=== PATIENT | male | born 1970 | race African-American/Black ===

== ENCOUNTER 2020-08-13 13:55 | Emergency (ER) | payer SELFPAY ==
[2020-08-13 14:24] VITALS: BP 144/65; PULSE 82; BMI 43.7
== END 2020-08-13 17:05 | disposition home or self-care (01) ==
LOC: JERFT 13:55
PROC: 0HQGXZZ Repair Left Hand Skin, External Approach (ICD-10-PCS; principal; 2020-08-13)
DX: S61.213A Laceration without foreign body of left middle finger without damage to nail, initial encounter (principal)
CPT/HCPCS: 99282-25

== ENCOUNTER 2021-10-07 11:56 | Inpatient (IN) | payer OTHER ==
[2021-10-07] MEDS ORDERED: ACETAMINOPHEN 500 MG TABLET (FP) PO ONE (13:22)
[2021-10-07] MEDS ORDERED: ACETAMINOPHEN 325 MG TABLET (FP) ONE ×2 (13:50→23:17)
[2021-10-07 15:05] LABS: BASO % 0.5 % (0-2.0); EOS % 1.3 % (0-4.5); HEMATOCRIT 41.7 % (35.4-49); HEMOGLOBIN 13.9 GM/dL (11.7-16.9); LYMPH % 22.8 % (8-40); MCH 29.8 pg (25.7-33.7); MCHC 33.3 g/dl (32.0-35.9); MEAN CELL VOLUME 89.7 fl (80-96); MEAN PLT VOLUME 8.2 fl (7.5-11.1); MONO % 6.9 % (3.8-10.2); NEUT % 68.5 % (42.8-82.8); PLATELET COUNT 227 10^3/uL (134-434); RBC 4.65 M/mm3 (4.00-5.60); RDW 13.8 % (11.9-15.9); WHITE BLOOD COUNT 8.1 K/mm3 (4.0-10.0)
[2021-10-07 15:32] LABS: BLOOD UREA NITROGEN 15.8 mg/dL (7-18)
[2021-10-07 15:35] LABS: CREATININE 1.1 mg/dL (0.55-1.3)
[2021-10-07] MEDS ORDERED: CLINDAMYCIN 600MG PREMIX IVPB 600 MG/50 ML BAG IVPB ONE ×2 (15:36→16:05)
[2021-10-07 15:37] LABS: BILIRUBIN,TOTAL 0.7 mg/dL (0.2-1)
[2021-10-07 15:45] LABS: ERYTHROCYTE SEDIMENTATION RATE 34 mm/hr (0-20)
[2021-10-07] MEDS ORDERED: VANCOMYCIN PREMIX 1.5 GM 1,500 MG/300 ML BAG IVPB SCH (17:30)
[2021-10-07] MEDS: ITRACONAZOLE 100 MG CAPSULE PO SCH (18:55)
[2021-10-07] MEDS: VANCOMYCIN PREMIX 1.5 GM 1,500 MG/300 ML BAG IVPB SCH (18:55)
[2021-10-07 19:05] LABS: EPI CELLS 12 /uL (0-25.1); HYALINE CASTS 1 /uL (0-3.1); PH,URINE 5.5 (5.0-8.0); URINE APPEARANCE CLEAR; URINE BACTERIA 89 /uL (0-1359); URINE BILIRUBIN NEGATIVE (NEGATIVE); URINE COLOR YELLOW; URINE GLUCOSE (UA) NEGATIVE (NEGATIVE); URINE KETONE TRACE (NEGATIVE); URINE LEUK ESTERASE TRACE (NEGATIVE); URINE NITRITE NEGATIVE (NEGATIVE); URINE PROTEIN NEGATIVE (NEGATIVE); URINE RBC 3 /uL (0-23.9); URINE WBC 17 /uL (0-25.8)
[2021-10-07] MEDS: ACETAMINOPHEN 325 MG TABLET (FP) PO PRN (23:20)
[2021-10-08 00:52] VITALS: BMI 45.3
[2021-10-08] MEDS: VANCOMYCIN PREMIX 1.5 GM 1,500 MG/300 ML BAG IVPB SCH (06:37)
[2021-10-08 08:52] LABS: BASO % 0.6 % (0-2.0); EOS % 2.2 % (0-4.5); HEMATOCRIT 42.5 % (35.4-49); HEMOGLOBIN 13.7 GM/dL (11.7-16.9); LYMPH % 27.5 % (8-40); MCH 29.2 pg (25.7-33.7); MCHC 32.2 g/dl (32.0-35.9); MEAN CELL VOLUME 90.6 fl (80-96); MEAN PLT VOLUME 8.4 fl (7.5-11.1); MONO % 7.1 % (3.8-10.2); NEUT % 62.6 % (42.8-82.8); PLATELET COUNT 229 10^3/uL (134-434); RBC 4.69 M/mm3 (4.00-5.60); RDW 13.9 % (11.9-15.9); WHITE BLOOD COUNT 7.6 K/mm3 (4.0-10.0)
[2021-10-08 09:34] LABS: CALCIUM 9.2 mg/dL (8.5-10.1)
[2021-10-08 09:35] LABS: BLOOD UREA NITROGEN 15.6 mg/dL (7-18)
[2021-10-08] MEDS ORDERED: FUROSEMIDE 40 MG TABLET (FP) PO ONE (10:38)
[2021-10-08] MEDS: ITRACONAZOLE 100 MG CAPSULE PO SCH (10:58)
[2021-10-08] MEDS ORDERED: MEROPENEM 1 GM VIAL (RESTRICTED TO ID) IVPB ONE ×2 (13:38→17:15)
[2021-10-08] MEDS ORDERED: DEXTROSE 5%-WATER 100 ML IVPB ONE ×2 (13:38→17:15)
[2021-10-08] MEDS: MEROPENEM 1 GM in DEXTROSE 5%-WATER 100 ML IVPB SCH ×2 (14:00→17:19)
[2021-10-08] MEDS: ACETAMINOPHEN 325 MG TABLET (FP) PO PRN (19:35)
[2021-10-09] MEDS ORDERED: MEROPENEM 1 GM VIAL (RESTRICTED TO ID) IVPB ONE ×2 (02:13→16:53)
[2021-10-09] MEDS ORDERED: DEXTROSE 5%-WATER 100 ML IVPB ONE ×2 (02:14→16:54)
[2021-10-09] MEDS: MEROPENEM 1 GM in DEXTROSE 5%-WATER 100 ML IVPB SCH ×3 (03:02→17:45)
[2021-10-09] MEDS ORDERED: VANCOMYCIN PREMIX 1.5 GM 1,500 MG/300 ML BAG IVPB SCH (06:00)
[2021-10-09 07:55] LABS: BASO % 0.5 % (0-2.0); EOS % 4.4 % (0-4.5); HEMATOCRIT 39.3 % (35.4-49); HEMOGLOBIN 13.3 GM/dL (11.7-16.9); LYMPH % 27.3 % (8-40); MCH 30.2 pg (25.7-33.7); MCHC 33.8 g/dl (32.0-35.9); MEAN CELL VOLUME 89.4 fl (80-96); MONO % 9.1 % (3.8-10.2); NEUT % 58.7 % (42.8-82.8); PLATELET COUNT 203 10^3/uL (134-434); RBC 4.39 M/mm3 (4.00-5.60); RDW 13.7 % (11.9-15.9); WHITE BLOOD COUNT 7.1 K/mm3 (4.0-10.0)
[2021-10-09 08:34] LABS: CALCIUM 8.9 mg/dL (8.5-10.1)
[2021-10-09 08:35] LABS: BLOOD UREA NITROGEN 14.1 mg/dL (7-18)
[2021-10-09] MEDS ORDERED: DEXMEDETOMIDINE HCL 200 MCG/2 ML IVPB ONE (09:45)
[2021-10-09] MEDS ORDERED: amLODIPine BESYLATE 2.5 MG TABLET (FP) PO SCH (10:00)
[2021-10-09] MEDS ORDERED: LIDOCAINE 1%/EPI 1:100000 (20 ML MULTI DOSE VIAL) ONE (10:01)
[2021-10-09] MEDS ORDERED: LIDOCAINE HCL 1%, 10 MG/ML (20ML VIAL) ONE (10:01)
[2021-10-09] MEDS ORDERED: BUPIVACAINE HCL/PF 0.5% (5MG/ML) 10 ML VIAL ONE (10:02)
[2021-10-09] MEDS ORDERED: MIDAZOLAM HCL 2 MG/2 ML SINGLE DOSE VIAL ONE ×2 (10:33→10:53)
[2021-10-09] MEDS ORDERED: KETAMINE HCL 200 MG/20 ML VIAL ONE (10:34)
[2021-10-09] MEDS ORDERED: LIDOCAINE HCL 1%, 10 MG/ML (20ML VIAL) INF ONE (10:49)
[2021-10-09] MEDS ORDERED: BUPIVACAINE HCL/PF 0.5% (5MG/ML) 10 ML VIAL IJ ONE (11:35)
[2021-10-09] MEDS ORDERED: LACTATED RINGERS SOLUTION 1,000 ML IV SCH ×2 (12:00→12:41)
[2021-10-09] MEDS: ITRACONAZOLE 100 MG CAPSULE PO SCH (13:57)
[2021-10-09] MEDS: ACETAMINOPHEN 325 MG TABLET (FP) PO PRN ×2 (17:46→21:53)
[2021-10-09] MEDS: ENOXAPARIN NA (PORCINE) 40 MG/0.4 ML DISP.SYRIN SQ SCH (21:48)
[2021-10-09] MEDS: ATORVASTATIN CA 10 MG TABLET (FP) PO SCH (21:48)
[2021-10-09] MEDS ORDERED: ENOXAPARIN NA (PORCINE) 40 MG/0.4 ML DISP.SYRIN SQ SCH (22:00)
[2021-10-09] MEDS ORDERED: ATORVASTATIN CA 10 MG TABLET (FP) PO SCH (22:00)
[2021-10-10] MEDS ORDERED: MEROPENEM 1 GM VIAL (RESTRICTED TO ID) IVPB ONE ×3 (01:09→16:55)
[2021-10-10] MEDS ORDERED: DEXTROSE 5%-WATER 100 ML IVPB ONE ×3 (01:10→16:55)
[2021-10-10] MEDS: MEROPENEM 1 GM in DEXTROSE 5%-WATER 100 ML IVPB SCH ×3 (01:33→17:36)
[2021-10-10] MEDS: ACETAMINOPHEN 325 MG TABLET (FP) PO PRN ×3 (01:40→09:50)
[2021-10-10] MEDS ORDERED: VANCOMYCIN PREMIX 1.5 GM 1,500 MG/300 ML BAG IVPB SCH (06:00)
[2021-10-10 08:43] LABS: BASO % 0.5 % (0-2.0); EOS % 2.3 % (0-4.5); HEMATOCRIT 39.1 % (35.4-49); HEMOGLOBIN 12.7 GM/dL (11.7-16.9); LYMPH % 24.3 % (8-40); MCH 29.4 pg (25.7-33.7); MCHC 32.5 g/dl (32.0-35.9); MEAN CELL VOLUME 90.3 fl (80-96); MEAN PLT VOLUME 8.7 fl (7.5-11.1); MONO % 8.2 % (3.8-10.2); NEUT % 64.7 % (42.8-82.8); PLATELET COUNT 214 10^3/uL (134-434); RBC 4.33 M/mm3 (4.00-5.60); RDW 13.4 % (11.9-15.9); WHITE BLOOD COUNT 8.6 K/mm3 (4.0-10.0)
[2021-10-10 08:57] LABS: ALBUMIN 3.9 g/dl (3.4-5.0); BLOOD UREA NITROGEN 19.4 mg/dL (7-18); CALCIUM 8.9 mg/dL (8.5-10.1)
[2021-10-10 09:01] LABS: CREATININE 1.2 mg/dL (0.55-1.3)
[2021-10-10 09:02] LABS: BILIRUBIN,TOTAL 0.9 mg/dL (0.2-1); TOT PROT 7.6 g/dl (6.4-8.2)
[2021-10-10] MEDS: ENOXAPARIN NA (PORCINE) 40 MG/0.4 ML DISP.SYRIN SQ SCH ×2 (09:48→22:16)
[2021-10-10] MEDS: amLODIPine BESYLATE 2.5 MG TABLET (FP) PO SCH (09:49)
[2021-10-10] MEDS: ITRACONAZOLE 100 MG CAPSULE PO SCH (09:49)
[2021-10-10] MEDS ORDERED: amLODIPine BESYLATE 2.5 MG TABLET (FP) PO SCH (10:00)
[2021-10-10] MEDS ORDERED: IBUPROFEN 600 MG TABLET (FP) PO PRN (12:38)
[2021-10-10] MEDS ORDERED: oxyCODONE HCL 5 MG TABLET PO PRN (14:58)
[2021-10-10] MEDS: ATORVASTATIN CA 10 MG TABLET (FP) PO SCH (22:16)
[2021-10-11] MEDS ORDERED: MEROPENEM 1 GM VIAL (RESTRICTED TO ID) IVPB ONE ×2 (00:57→08:53)
[2021-10-11] MEDS ORDERED: DEXTROSE 5%-WATER 100 ML IVPB ONE ×2 (00:57→08:54)
[2021-10-11] MEDS: MEROPENEM 1 GM in DEXTROSE 5%-WATER 100 ML IVPB SCH ×2 (01:02→09:37)
[2021-10-11 09:11] LABS: BASO % 0.7 % (0-2.0); EOS % 2.7 % (0-4.5); HEMATOCRIT 39.9 % (35.4-49); HEMOGLOBIN 13.3 GM/dL (11.7-16.9); LYMPH % 25.8 % (8-40); MCH 29.9 pg (25.7-33.7); MCHC 33.3 g/dl (32.0-35.9); MEAN CELL VOLUME 89.7 fl (80-96); MEAN PLT VOLUME 8.8 fl (7.5-11.1); NEUT % 62.8 % (42.8-82.8); PLATELET COUNT 218 10^3/uL (134-434); RBC 4.45 M/mm3 (4.00-5.60); RDW 13.4 % (11.9-15.9); WHITE BLOOD COUNT 6.8 K/mm3 (4.0-10.0)
[2021-10-11 09:27] LABS: CALCIUM 9.2 mg/dL (8.5-10.1)
[2021-10-11] MEDS: ITRACONAZOLE 100 MG CAPSULE PO SCH (09:37)
[2021-10-11] MEDS: ENOXAPARIN NA (PORCINE) 40 MG/0.4 ML DISP.SYRIN SQ SCH ×2 (09:37→21:30)
[2021-10-11] MEDS: amLODIPine BESYLATE 2.5 MG TABLET (FP) PO SCH (09:37)
[2021-10-11] MEDS ORDERED: HYDROCHLOROTHIAZIDE 12.5 MG CAPSULE (FP) PO SCH (10:00)
[2021-10-11] MEDS ORDERED: POLYETHYLENE GLYCOL 3350 119 GM BTL PO SCH (11:30)
[2021-10-11] MEDS ORDERED: POLYETHYLENE GLYCOL (HEALTHYLAX) 3350 17 GM PACKET PO SCH (13:17)
[2021-10-11] MEDS: POLYETHYLENE GLYCOL (HEALTHYLAX) 3350 17 GM PACKET PO SCH (14:34)
[2021-10-11] MEDS ORDERED: DEXTROSE 5%-WATER - 50 ML IVPB ONE (16:50)
[2021-10-11] MEDS ORDERED: cefTRIAXone SODIUM 1 GM VIAL ONE (16:50)
[2021-10-11] MEDS: CEFTRIAXONE 1 GM in DEXTROSE 5%-WATER - 50 ML IVPB SCH (17:00)
[2021-10-11] MEDS: ATORVASTATIN CA 10 MG TABLET (FP) PO SCH (21:31)
[2021-10-12] MEDS ORDERED: amLODIPine BESYLATE 10 MG TABLET (FP) PO SCH (08:22)
[2021-10-12] MEDS ORDERED: HYDROCHLOROTHIAZIDE 25 MG TABLET (FP) PO SCH (08:22)
[2021-10-12] MEDS ORDERED: cefTRIAXone SODIUM 1 GM VIAL ONE (09:36)
[2021-10-12] MEDS ORDERED: DEXTROSE 5%-WATER - 50 ML IVPB ONE (09:36)
[2021-10-12] MEDS: ENOXAPARIN NA (PORCINE) 40 MG/0.4 ML DISP.SYRIN SQ SCH (09:38)
[2021-10-12] MEDS: POLYETHYLENE GLYCOL (HEALTHYLAX) 3350 17 GM PACKET PO SCH (09:38)
[2021-10-12] MEDS: CEFTRIAXONE 1 GM in DEXTROSE 5%-WATER - 50 ML IVPB SCH (09:38)
[2021-10-12] MEDS: ITRACONAZOLE 100 MG CAPSULE PO SCH (09:40)
[2021-10-12] MEDS ORDERED: BISACODYL 10 MG SUPP.RECT PR ONE ×2 (10:00→14:03)
[2021-10-12] MEDS ORDERED: POLYETHYLENE GLYCOL (HEALTHYLAX) 3350 17 GM PACKET PO SCH (10:00)
[2021-10-12 12:19] VITALS: BP 156/95; PULSE 73; TEMP 98.3
== END 2021-10-12 17:21 | disposition home or self-care (01) | DRG 361 ==
LOC: JER 11:56 → UNDOADMOB 15:58 → JERBED 15:58 → INTOOBSV 15:58 → JERBED 16:55 → J7W 10-08 00:32 → OBSVTOIN 10-09 15:32
PROVIDERS: ADMIT Internal Medicine; ATTEND Internal Medicine
PROC: 0HBNXZZ Excision of Left Foot Skin, External Approach (ICD-10-PCS; 2021-10-09)
PROC: 0J9R0ZZ Drainage of Left Foot Subcutaneous Tissue and Fascia, Open Approach (ICD-10-PCS; principal; 2021-10-09 10:00)
DX: L03.116 Cellulitis of left lower limb (principal); L02.612 Cutaneous abscess of left foot; B35.1 Tinea unguium; E66.01 Morbid (severe) obesity due to excess calories; Z68.42 Body mass index [BMI] 45.0-49.9, adult; B95.61 Methicillin susceptible Staphylococcus aureus infection as the cause of diseases classified elsewhere
CPT/HCPCS: 36415; 71045-TC-FY; 73630-TC-LT; 80048; 80053; 80061; 81003; 82962; 83036; 84439; 84443; 85025; 85379; 85651; 87070; 87075; 87077; 87086; 87186; 87205; 88304-TC; 93005; 93010; 93306-TC; 94760; 97116-GP; 97161-GP; 99285-25; C9803; G0378; U0003; U0005

== ENCOUNTER 2021-10-22 13:18 | Inpatient (IN) | payer OTHER ==
[2021-10-22] MEDS ORDERED: VANCOMYCIN/WATER 1,250 MG/250 ML BAG IVPB ONE (14:00)
[2021-10-22] MEDS ORDERED: MEROPENEM 1 GM in DEXTROSE 5%-WATER 100 ML IVPB ONE (14:07)
[2021-10-22] MEDS ORDERED: MEROPENEM 1 GM VIAL (RESTRICTED TO ID) IVPB ONE (14:21)
[2021-10-22 22:19] VITALS: BMI 43.5
[2021-10-22] MEDS ORDERED: ACETAMINOPHEN 325 MG TABLET (FP) PO PRN (23:34)
[2021-10-23] MEDS: amLODIPine BESYLATE 5 MG TABLET (FP) PO SCH (09:39)
[2021-10-23] MEDS: ITRACONAZOLE 100 MG CAPSULE PO SCH (09:39)
[2021-10-23] MEDS: NICOTINE 14 MG/24 HOURS TOPICAL PATCH TD SCH (09:39)
[2021-10-23] MEDS: ENOXAPARIN NA (PORCINE) 40 MG/0.4 ML DISP.SYRIN SQ SCH (09:39)
[2021-10-23] MEDS ORDERED: VANCOMYCIN 1 GM in D5W (PRE-DOCKED) 1,000 MG/250 ML IVPB SCH (10:00)
[2021-10-23 10:50] LABS: HEMATOCRIT 39.6 % (35.4-49); HEMOGLOBIN 13.2 GM/dL (11.7-16.9); MCH 29.3 pg (25.7-33.7); MCHC 33.3 g/dl (32.0-35.9); MEAN CELL VOLUME 88.2 fl (80-96); MEAN PLT VOLUME 8.5 fl (7.5-11.1); PLATELET COUNT 245 10^3/uL (134-434); RBC 4.48 M/mm3 (4.00-5.60); RDW 13.2 % (11.9-15.9); WHITE BLOOD COUNT 7.1 K/mm3 (4.0-10.0)
[2021-10-23 11:06] LABS: CALCIUM 9.6 mg/dL (8.5-10.1)
[2021-10-23 11:07] LABS: ALBUMIN 3.8 g/dl (3.4-5.0); BLOOD UREA NITROGEN 12.2 mg/dL (7-18); MAGNESIUM 2.1 mg/dL (1.8-2.4)
[2021-10-23 11:09] LABS: CREATININE 1.2 mg/dL (0.55-1.3)
[2021-10-23 11:10] LABS: PHOSPHOROUS 3.4 mg/dL (2.5-4.9)
[2021-10-23 11:11] LABS: BILIRUBIN,TOTAL 0.8 mg/dL (0.2-1); TOT PROT 7.5 g/dl (6.4-8.2)
[2021-10-23] MEDS ORDERED: cefTRIAXone SODIUM 1 GM VIAL ONE (14:13)
[2021-10-23] MEDS ORDERED: DEXTROSE 5%-WATER - 50 ML IVPB ONE (14:13)
[2021-10-23] MEDS: CEFTRIAXONE 1 GM in DEXTROSE 5%-WATER - 50 ML IVPB SCH (14:15)
[2021-10-23] MEDS: ATORVASTATIN CA 10 MG TABLET (FP) PO SCH (22:30)
[2021-10-23] MEDS: HYDROCHLOROTHIAZIDE 12.5 MG CAPSULE (FP) PO SCH (22:30)
[2021-10-24 10:02] LABS: BASO % 0.4 % (0-2.0); EOS % 2.6 % (0-4.5); HEMOGLOBIN 12.9 GM/dL (11.7-16.9); LYMPH % 22.2 % (8-40); MCH 29.5 pg (25.7-33.7); MCHC 33.2 g/dl (32.0-35.9); MEAN PLT VOLUME 8.4 fl (7.5-11.1); MONO % 6.4 % (3.8-10.2); NEUT % 68.4 % (42.8-82.8); PLATELET COUNT 250 10^3/uL (134-434); RBC 4.38 M/mm3 (4.00-5.60); RDW 12.9 % (11.9-15.9); WHITE BLOOD COUNT 7.7 K/mm3 (4.0-10.0)
[2021-10-24] MEDS ORDERED: cefTRIAXone SODIUM 1 GM VIAL ONE (10:19)
[2021-10-24] MEDS ORDERED: DEXTROSE 5%-WATER - 50 ML IVPB ONE (10:20)
[2021-10-24] MEDS: NICOTINE 14 MG/24 HOURS TOPICAL PATCH TD SCH (10:28)
[2021-10-24] MEDS: amLODIPine BESYLATE 5 MG TABLET (FP) PO SCH (10:28)
[2021-10-24] MEDS: ITRACONAZOLE 100 MG CAPSULE PO SCH (10:28)
[2021-10-24] MEDS: CEFTRIAXONE 1 GM in DEXTROSE 5%-WATER - 50 ML IVPB SCH (10:28)
[2021-10-24 10:42] LABS: CALCIUM 9.1 mg/dL (8.5-10.1)
[2021-10-24 10:43] LABS: BLOOD UREA NITROGEN 14.1 mg/dL (7-18)
[2021-10-24] MEDS: ENOXAPARIN NA (PORCINE) 40 MG/0.4 ML DISP.SYRIN SQ SCH (10:44)
[2021-10-24 10:47] LABS: CREATININE 1.1 mg/dL (0.55-1.3)
[2021-10-24] MEDS: HYDROCHLOROTHIAZIDE 12.5 MG CAPSULE (FP) PO SCH (21:54)
[2021-10-24] MEDS: ATORVASTATIN CA 10 MG TABLET (FP) PO SCH (21:54)
[2021-10-25 09:27] LABS: BASO % 0.8 % (0-2.0); EOS % 2.8 % (0-4.5); HEMATOCRIT 39.7 % (35.4-49); HEMOGLOBIN 13.8 GM/dL (11.7-16.9); LYMPH % 30.1 % (8-40); MCH 30.2 pg (25.7-33.7); MCHC 34.7 g/dl (32.0-35.9); MEAN PLT VOLUME 8.2 fl (7.5-11.1); MONO % 7.1 % (3.8-10.2); NEUT % 59.2 % (42.8-82.8); PLATELET COUNT 242 10^3/uL (134-434); RBC 4.57 M/mm3 (4.00-5.60); RDW 13.1 % (11.9-15.9); WHITE BLOOD COUNT 7.4 K/mm3 (4.0-10.0)
[2021-10-25 09:44] LABS: CALCIUM 9.7 mg/dL (8.5-10.1)
[2021-10-25 09:45] LABS: BLOOD UREA NITROGEN 13.7 mg/dL (7-18)
[2021-10-25] MEDS ORDERED: DEXTROSE 5%-WATER - 50 ML IVPB ONE (10:35)
[2021-10-25] MEDS ORDERED: cefTRIAXone SODIUM 1 GM VIAL ONE (10:35)
[2021-10-25] MEDS: CEFTRIAXONE 1 GM in DEXTROSE 5%-WATER - 50 ML IVPB SCH (10:45)
[2021-10-25] MEDS: amLODIPine BESYLATE 5 MG TABLET (FP) PO SCH (10:45)
[2021-10-25] MEDS: NICOTINE 14 MG/24 HOURS TOPICAL PATCH TD SCH ×2 (10:45→10:55)
[2021-10-25] MEDS: ITRACONAZOLE 100 MG CAPSULE PO SCH (10:52)
[2021-10-25] MEDS: ENOXAPARIN NA (PORCINE) 40 MG/0.4 ML DISP.SYRIN SQ SCH (11:39)
[2021-10-25] MEDS: HYDROCHLOROTHIAZIDE 12.5 MG CAPSULE (FP) PO SCH (21:27)
[2021-10-25] MEDS: ATORVASTATIN CA 10 MG TABLET (FP) PO SCH (21:28)
[2021-10-26 08:32] LABS: BASO % 0.9 % (0-2.0); EOS % 3.9 % (0-4.5); HEMATOCRIT 40.4 % (35.4-49); HEMOGLOBIN 13.4 GM/dL (11.7-16.9); LYMPH % 27.8 % (8-40); MCH 29.3 pg (25.7-33.7); MCHC 33.1 g/dl (32.0-35.9); MEAN CELL VOLUME 88.5 fl (80-96); MEAN PLT VOLUME 8.4 fl (7.5-11.1); MONO % 7.4 % (3.8-10.2); PLATELET COUNT 234 10^3/uL (134-434); RBC 4.57 M/mm3 (4.00-5.60); RDW 13.2 % (11.9-15.9); WHITE BLOOD COUNT 7.7 K/mm3 (4.0-10.0)
[2021-10-26 08:50] LABS: CALCIUM 9.8 mg/dL (8.5-10.1)
[2021-10-26 08:54] LABS: CREATININE 1.1 mg/dL (0.55-1.3)
[2021-10-26] MEDS ORDERED: DEXTROSE 5%-WATER - 50 ML IVPB ONE (09:16)
[2021-10-26] MEDS ORDERED: cefTRIAXone SODIUM 1 GM VIAL ONE (09:16)
[2021-10-26] MEDS: CEFTRIAXONE 1 GM in DEXTROSE 5%-WATER - 50 ML IVPB SCH (09:18)
[2021-10-26] MEDS: amLODIPine BESYLATE 5 MG TABLET (FP) PO SCH (09:18)
[2021-10-26] MEDS: ENOXAPARIN NA (PORCINE) 40 MG/0.4 ML DISP.SYRIN SQ SCH (09:19)
[2021-10-26] MEDS: ITRACONAZOLE 100 MG CAPSULE PO SCH (09:19)
[2021-10-26] MEDS: NICOTINE 14 MG/24 HOURS TOPICAL PATCH TD SCH (09:23)
[2021-10-26] MEDS: HYDROCHLOROTHIAZIDE 12.5 MG CAPSULE (FP) PO SCH (21:28)
[2021-10-26] MEDS: ATORVASTATIN CA 10 MG TABLET (FP) PO SCH (21:28)
[2021-10-27 10:04] LABS: BASO % 0.7 % (0-2.0); EOS % 3.2 % (0-4.5); HEMATOCRIT 40.5 % (35.4-49); LYMPH % 28.1 % (8-40); MCH 30.3 pg (25.7-33.7); MCHC 34.6 g/dl (32.0-35.9); MEAN CELL VOLUME 87.6 fl (80-96); MEAN PLT VOLUME 8.4 fl (7.5-11.1); MONO % 7.9 % (3.8-10.2); NEUT % 60.1 % (42.8-82.8); PLATELET COUNT 231 10^3/uL (134-434); RBC 4.63 M/mm3 (4.00-5.60); RDW 13.3 % (11.9-15.9); WHITE BLOOD COUNT 7.7 K/mm3 (4.0-10.0)
[2021-10-27] MEDS: amLODIPine BESYLATE 5 MG TABLET (FP) PO SCH (10:18)
[2021-10-27] MEDS: NICOTINE 14 MG/24 HOURS TOPICAL PATCH TD SCH ×2 (10:18→10:26)
[2021-10-27] MEDS: ITRACONAZOLE 100 MG CAPSULE PO SCH (10:19)
[2021-10-27] MEDS: ENOXAPARIN NA (PORCINE) 40 MG/0.4 ML DISP.SYRIN SQ SCH (10:19)
[2021-10-27 10:25] LABS: CALCIUM 9.4 mg/dL (8.5-10.1)
[2021-10-27 10:26] LABS: BLOOD UREA NITROGEN 16.1 mg/dL (7-18)
[2021-10-27 10:30] LABS: CREATININE 1.1 mg/dL (0.55-1.3)
[2021-10-27] MEDS: ATORVASTATIN CA 10 MG TABLET (FP) PO SCH (21:39)
[2021-10-27] MEDS: HYDROCHLOROTHIAZIDE 12.5 MG CAPSULE (FP) PO SCH (21:39)
[2021-10-28 10:04] LABS: BASO % 0.6 % (0-2.0); EOS % 2.7 % (0-4.5); HEMOGLOBIN 12.9 GM/dL (11.7-16.9); LYMPH % 27.3 % (8-40); MCH 29.2 pg (25.7-33.7); MEAN CELL VOLUME 88.6 fl (80-96); MEAN PLT VOLUME 8.8 fl (7.5-11.1); MONO % 7.3 % (3.8-10.2); NEUT % 62.1 % (42.8-82.8); PLATELET COUNT 224 10^3/uL (134-434); RDW 12.9 % (11.9-15.9); WHITE BLOOD COUNT 7.4 K/mm3 (4.0-10.0)
[2021-10-28] MEDS: ENOXAPARIN NA (PORCINE) 40 MG/0.4 ML DISP.SYRIN SQ SCH (10:19)
[2021-10-28] MEDS: amLODIPine BESYLATE 5 MG TABLET (FP) PO SCH (10:19)
[2021-10-28 10:20] LABS: CALCIUM 9.8 mg/dL (8.5-10.1)
[2021-10-28] MEDS: NICOTINE 14 MG/24 HOURS TOPICAL PATCH TD SCH (10:20)
[2021-10-28] MEDS: ITRACONAZOLE 100 MG CAPSULE PO SCH (10:20)
[2021-10-28 10:21] LABS: BLOOD UREA NITROGEN 13.9 mg/dL (7-18)
[2021-10-28 10:24] LABS: CREATININE 1.1 mg/dL (0.55-1.3)
[2021-10-28] MEDS: ATORVASTATIN CA 10 MG TABLET (FP) PO SCH (21:12)
[2021-10-28] MEDS: HYDROCHLOROTHIAZIDE 12.5 MG CAPSULE (FP) PO SCH (21:12)
[2021-10-29] MEDS ORDERED: FUROSEMIDE 40 MG/4 ML INJECTABLE VIAL IVPUSH ONE (10:43)
[2021-10-29] MEDS: NICOTINE 14 MG/24 HOURS TOPICAL PATCH TD SCH (10:46)
[2021-10-29] MEDS: amLODIPine BESYLATE 5 MG TABLET (FP) PO SCH (10:46)
[2021-10-29] MEDS: ITRACONAZOLE 100 MG CAPSULE PO SCH (10:47)
[2021-10-29] MEDS: ENOXAPARIN NA (PORCINE) 40 MG/0.4 ML DISP.SYRIN SQ SCH (12:28)
[2021-10-29 14:20] VITALS: TEMP 98.1
[2021-10-29 15:24] LABS: URINE APPEARANCE CLEAR; URINE BILIRUBIN NEGATIVE (NEGATIVE); URINE COLOR YELLOW; URINE GLUCOSE (UA) NEGATIVE (NEGATIVE); URINE KETONE TRACE (NEGATIVE); URINE LEUK ESTERASE NEGATIVE (NEGATIVE); URINE NITRITE NEGATIVE (NEGATIVE); URINE PROTEIN NEGATIVE (NEGATIVE)
[2021-10-29 16:00] VITALS: BP 129/71; PULSE 71
[2021-10-30] MEDS ORDERED: amLODIPine BESYLATE 5 MG TABLET (FP) PO ONE (15:02)
== END 2021-10-29 20:30 | disposition home or self-care (01) | DRG 813 ==
LOC: JER 13:18 → JERBED 17:56 → J6S 20:49
PROVIDERS: ADMIT Internal Medicine; ATTEND Internal Medicine
DX: T81.30XA Disruption of wound, unspecified, initial encounter (principal); Y83.8 Other surgical procedures as the cause of abnormal reaction of the patient, or of later complication, without mention of misadventure at the time of the procedure; I10 Essential (primary) hypertension; L02.612 Cutaneous abscess of left foot; E66.01 Morbid (severe) obesity due to excess calories; Z68.41 Body mass index [BMI] 40.0-44.9, adult; B35.1 Tinea unguium; F17.210 Nicotine dependence, cigarettes, uncomplicated; G47.30 Sleep apnea, unspecified; L03.116 Cellulitis of left lower limb; B96.5 Pseudomonas (aeruginosa) (mallei) (pseudomallei) as the cause of diseases classified elsewhere; B95.7 Other staphylococcus as the cause of diseases classified elsewhere; Z88.0 Allergy status to penicillin
CPT/HCPCS: 36415; 73630-TC-LT; 73701-TC-RT; 80048; 80053; 81003; 83735; 84100; 85025; 85027; 85651; 86140; 87040; 87070; 87186; 87205; 93005; 93010; 93971-TC; 97116-GP; 97162-GP; 99285-25; C9803; G0463-25; Q9967; U0003; U0005